=== PATIENT | male | born 1950 | race African-American/Black ===

== ENCOUNTER 2020-11-23 05:28 | Inpatient (IN) ==
[2020-11-23] MEDS ORDERED: VANCOMYCIN INJ 1,000 MG in SODIUM CHLORIDE 0.9% 250 ML IV ONE (06:00)
[2020-11-23] MEDS ORDERED: MIDAZOLAM 2 MG/2 ML VIAL ONE (06:17)
[2020-11-23] MEDS ORDERED: BUPIVACAINE SPINAL 0.75% 2 ML AMP SPINAL ONE (06:17)
[2020-11-23] MEDS ORDERED: fentaNYL 100 MCG/2 ML VIAL ONE (06:17)
[2020-11-23] MEDS ORDERED: PHENYLEPHRINE 10 MG/1 ML VIAL IV ONE (06:18)
[2020-11-23] MEDS ORDERED: DIAZEPAM 5 MG TABLET PO ONE (06:29)
[2020-11-23] MEDS ORDERED: ACETAMINOPHEN 500 MG TABLET PO ONE (06:29)
[2020-11-23] MEDS ORDERED: ALBUTEROL 2.5 MG/3 ML NEB RESP TX ONE (06:29)
[2020-11-23] MEDS ORDERED: BACITRACIN OINT 0.9 GM PACK TOP ONE (06:29)
[2020-11-23] MEDS ORDERED: GABAPENTIN 400 MG CAPSULE PO ONE (06:29)
[2020-11-23] MEDS ORDERED: FAMOTIDINE 20 MG TABLET PO ONE (06:29)
[2020-11-23] MEDS ORDERED: LACTATED RINGERS 1,000 ML IV SCH ×2 (06:30→07:30)
[2020-11-23] MEDS ORDERED: ROPIVACAINE 0.5% 30 ML VIAL ONE (06:33)
[2020-11-23] MEDS ORDERED: LIDOCAINE 1% 5 ML VIAL ONE (06:33)
[2020-11-23] MEDS ORDERED: DEXAMETHASONE 4 MG/1 ML VIAL ONE (06:33)
[2020-11-23] MEDS ORDERED: ePHEDrine 50 MG/ML VIAL ONE (07:20)
[2020-11-23] MEDS ORDERED: KETAMINE 500 MG/10 ML VIAL ONE (07:22)
[2020-11-23] MEDS ORDERED: NITROGLYCERIN SL 0.4 MG TABLET SL PRN (07:24)
[2020-11-23] MEDS ORDERED: METHOCARBAMOL 500 MG TABLET PO PRN (07:24)
[2020-11-23] MEDS ORDERED: MAGNESIUM HYDROXIDE SUSP 30 ML UDCUP PO PRN (07:26)
[2020-11-23] MEDS ORDERED: ZALEPLON 5 MG CAPSULE PO PRN (07:28)
[2020-11-23] MEDS ORDERED: diphenhydrAMINE CAP 25 MG CAPSULE PO PRN (07:28)
[2020-11-23] MEDS ORDERED: ONDANSETRON 4 MG/2 ML VIAL IV PRN ×2 (07:28→15:41)
[2020-11-23] MEDS ORDERED: MORPHINE 4 MG/1 ML VIAL IV PRN (07:28)
[2020-11-23] MEDS ORDERED: KETOROLAC 15 MG/1 ML VIAL IV SCH (07:30)
[2020-11-23] MEDS ORDERED: GLYCOPYRROLATE 0.4 MG/2 ML VIAL ONE (07:55)
[2020-11-23] MEDS ORDERED: propofoL 200 MG/20 ML VIAL IV ONE (07:55)
[2020-11-23] MEDS ORDERED: SODIUM CHLORIDE 0.9% 100 ML IV ONE ×2 (07:55→08:20)
[2020-11-23] MEDS ORDERED: TRANEXAMIC ACID 1,000 MG/10 ML VIAL ONE (08:19)
[2020-11-23] MEDS ORDERED: HYDROmorphone 2 MG/1 ML VIAL IV PRN (15:41)
[2020-11-23] MEDS ORDERED: HYDROmorphone 2 MG/1 ML VIAL ONE (15:41)
[2020-11-23] MEDS ORDERED: KETOROLAC 30 MG/1 ML VIAL ONE (15:41)
[2020-11-23] MEDS: ceFAZolin 2,000 MG/50 ML DUPLEX IV SCH ×2 (15:51→20:21)
[2020-11-23] MEDS: traZODone 50 MG TABLET PO SCH (20:21)
[2020-11-23] MEDS: DOCUSATE SODIUM 100 MG CAPSULE PO SCH (20:21)
[2020-11-23] MEDS: METOPROLOL SUCCINATE XL 100 MG TABLET PO SCH (20:21)
[2020-11-23] MEDS: GABAPENTIN 300 MG CAPSULE PO SCH (21:12)
[2020-11-24] MEDS: FONDAPARINUX 2.5 MG/0.5 ML SYRINGE SUBCUT SCH (00:34)
[2020-11-24 05:42] LABS: Basophils % 0.2 % (0.0-0.8); Eosinophils % 0.3 % (0.00-10.9); Hematocrit 40.9 VOL% (42.0-52.0); Hemoglobin 13.1 GM/DL (14.0-18.0); Immature Granulocytes % 0.4 %; Immature Granulocytes Absolute 0.04 #; Lymphocytes # 2.9 10*3/uL (1.4-4.0); Lymphocytes % 26.8 % (21.2-54.2); Mean Corpuscular Volume 83.8 FL (87-102); Mean Platelet Volume 12.7 FL (9.6-12.0); Monocytes % 13.9 % (1.7-12.7); Neutrophils % 58.4 % (38.7-73.9); Platelet Count 126 T/CUMM (130-400); Red Blood Count 4.88 MC/CUMM (3.8-5.5); Red Cell Distribution Width 15.6 % (9.3-17.3); White Blood Count 10.8 T/CUMM (4-12)
[2020-11-24 05:59] LABS: Potassium 4.3 MMOL/L (3.5-5.1)
[2020-11-24] MEDS: METOPROLOL SUCCINATE XL 100 MG TABLET PO SCH ×2 (08:40→20:51)
[2020-11-24] MEDS: DOCUSATE SODIUM 100 MG CAPSULE PO SCH ×3 (08:40→20:51)
[2020-11-24] MEDS: LISINOPRIL/HCTZ 10-12.5 MG TABLET PO SCH (08:41)
[2020-11-24] MEDS: GABAPENTIN 300 MG CAPSULE PO SCH ×4 (08:41→20:51)
[2020-11-24] MEDS: ROSUVASTATIN 20 MG TABLET PO SCH (08:41)
[2020-11-24] MEDS: NICOTINE 14 MG/24 HR PATCH TRANSDERM SCH (10:53)
[2020-11-24] MEDS: MORPHINE 4 MG/1 ML VIAL IV PRN (11:13)
[2020-11-24] MEDS: traZODone 50 MG TABLET PO SCH (20:51)
[2020-11-25] MEDS: FONDAPARINUX 2.5 MG/0.5 ML SYRINGE SUBCUT SCH (02:15)
[2020-11-25 04:28] LABS: Basophils % 0.2 % (0.0-0.8); Eosinophils % 0.1 % (0.00-10.9); Hemoglobin 13.3 GM/DL (14.0-18.0); Immature Granulocytes % 0.4 %; Immature Granulocytes Absolute 0.06 #; Lymphocytes # 2.4 10*3/uL (1.4-4.0); Mean Corpuscular HGB Conc 33.3 GM/DL (32-36); Mean Corpuscular Volume 82.1 FL (87-102); Mean Platelet Volume 12.1 FL (9.6-12.0); Monocytes % 12.9 % (1.7-12.7); Neutrophils % 69.4 % (38.7-73.9); Platelet Count 120 T/CUMM (130-400); Red Blood Count 4.87 MC/CUMM (3.8-5.5); Red Cell Distribution Width 14.9 % (9.3-17.3)
[2020-11-25 04:45] LABS: Hypochromasia 1+; Microcytosis 1+; Ovalocytes Slight
[2020-11-25 04:46] LABS: Platelet Estimate Adequate
[2020-11-25] MEDS: MORPHINE 4 MG/1 ML VIAL IV PRN (07:30)
[2020-11-25] MEDS: ROSUVASTATIN 20 MG TABLET PO SCH (09:02)
[2020-11-25] MEDS: DOCUSATE SODIUM 100 MG CAPSULE PO SCH (09:02)
[2020-11-25] MEDS: LISINOPRIL/HCTZ 10-12.5 MG TABLET PO SCH (09:02)
[2020-11-25] MEDS: METOPROLOL SUCCINATE XL 100 MG TABLET PO SCH (09:02)
[2020-11-25] MEDS: GABAPENTIN 300 MG CAPSULE PO SCH (09:02)
[2020-11-25] MEDS: NICOTINE 14 MG/24 HR PATCH TRANSDERM SCH (09:03)
[2020-11-25 11:30] VITALS: BP 153/87
== END 2020-11-25 12:18 | disposition home health service (06) | DRG 470 ==
LOC: N.OR 05:28 → N.SDSINP 05:31 → N.3E 16:41
PROVIDERS: ADMIT Orthopaedic Surgery; ATTEND Orthopaedic Surgery